=== PATIENT | female | born 1960 | race African-American/Black ===

== ENCOUNTER 2017-06-03 06:42 | Observation (INO) ==
[2017-06-03] MEDS ORDERED: ASPIRIN 325 MG TABLET PO STA (07:03)
[2017-06-03] MEDS ORDERED: ONDANSETRON 4 MG/2 ML VIAL IV PRN ×2 (07:03→14:58)
[2017-06-03] MEDS ORDERED: ENOXAPARIN 100 MG/ML SYRINGE SUBCUT STA (07:03)
[2017-06-03] MEDS ORDERED: NITROGLYCERIN 2% OINT 1 INCH/GM PACK TOP STA (07:03)
[2017-06-03] MEDS ORDERED: MORPHINE 2 MG/1 ML SYRINGE IV PRN (07:03)
[2017-06-03 07:22] LABS: Apearance,Urine Slightly Hazy (Clear); Bacteria,Urine Occasional /HPF (Few); Bilirubin,Urine Negative (Negative); Blood, Urine Small mg/dL (Negative); Glucose,Urine (UA) Negative (Negative); Hyaline Casts,Urine 10 /LPF (0-3); Ketones,Urine Negative (Negative); Mucus,Urine Few /LPF (Occasional); Nitrite,Urine Negative (Negative); Protein,Urine Negative; RBC,Urine 1 /HPF (0-4); Squamous Epithelial Cell,Urine Occasional /HPF (0-10); Urine Color Amber (Yellow); Urine Specific Gravity 1.029 (1.001-1.035); WBC,Urine 2 /HPF (0-6)
[2017-06-03] MEDS ORDERED: NITROGLYCERIN 2% OINT 1 INCH/GM PACK TOP ONE (07:32)
[2017-06-03] MEDS ORDERED: ENOXAPARIN 100 MG/ML SYRINGE SUBCUT ONE (07:32)
[2017-06-03 07:52] LABS: Basophils # 0.1 10*3/uL (0.0-0.2); Basophils % 0.4 % (0.0-0.8); Eosinophils # 0.1 10*3/uL (0.0-0.87); Eosinophils % 0.6 % (0.00-10.9); Hematocrit 36.8 VOL% (35.7-47.0); Hemoglobin 11.4 GM/DL (12.0-16.0); Immature Granulocytes % 0.5 %; Immature Granulocytes Absolute 0.06 #; Lymphocytes # 0.8 10*3/uL (1.4-4.0); Lymphocytes % 7.3 % (21.3-54.2); Mean Corpuscular Hemoglobin 27 PG (27-34); Mean Corpuscular Volume 85.4 FL (87-102); Mean Platelet Volume 11.3 FL (9.6-12.0); Monocytes # 0.4 10*3/uL (0.11-0.8); Monocytes % 3.8 % (1.7-12.7); Neutrophils # 9.9 10*3/uL (1.4-7.4); Neutrophils % 87.4 % (38.7-73.9); Platelet Count 191 T/CUMM (130-400); Red Blood Count 4.31 MC/CUMM (3.8-5.5); Red Cell Distribution Width 15.5 % (9.3-17.3); White Blood Count 11.4 T/CUMM (4-12)
[2017-06-03 07:56] LABS: Barbiturates Screen,Urine Negative (Negative); Benzodiazepines Screen,Urine Negative (Negative); Cannabinoid Screen,Urine Negative (Negative); Opiate Screen,Urine Positive (Negative); Phencyclidine Screen,Urine Negative (Negative)
[2017-06-03 08:09] LABS: Giant Platelets Few; Hypochromasia 1+; Ovalocytes Slight; Platelet Estimate Adequate
[2017-06-03 08:15] LABS: PT Patient Result 10.2 SECS; Partial Thromboplastin Time 31.1 SECS (0-40)
[2017-06-03 08:32] LABS: Albumin 3.8 G/DL (3.4-5.0); Bilirubin,Total 0.9 MG/DL (0.2-1.0); Calcium 8.7 MG/DL (8.5-10.1); Osmolality,Calculated 278.7 MOS/KG (273-304); Potassium 3.7 MMOL/L (3.5-5.1)
[2017-06-03] MEDS ORDERED: ACETAMINOPHEN 325 MG TABLET PO PRN (14:58)
[2017-06-03] MEDS ORDERED: ALUM/MAG/SIMETH/LIDO VISC 1:1 30 ML BOTTLE PO PRN (14:58)
[2017-06-03] MEDS ORDERED: tiZANidine 4 MG TABLET PO PRN (14:58)
[2017-06-03] MEDS: CITALOPRAM 40 MG TABLET PO SCH (20:55)
[2017-06-03] MEDS: BACLOFEN 10 MG TABLET PO SCH (21:01)
[2017-06-03] MEDS: traMADol 50 MG TABLET PO PRN (21:01)
[2017-06-03] MEDS: DICLOFENAC SODIUM 75 MG TABLET PO SCH (21:01)
[2017-06-04] MEDS: LEVOTHYROXINE 125 MCG TABLET PO SCH (06:25)
[2017-06-04] MEDS: FAMOTIDINE 20 MG TABLET PO SCH (09:14)
[2017-06-04] MEDS: BACLOFEN 10 MG TABLET PO SCH ×2 (09:14→20:47)
[2017-06-04] MEDS: MELOXICAM 7.5 MG TABLET PO SCH (09:14)
[2017-06-04] MEDS: DICLOFENAC SODIUM 75 MG TABLET PO SCH ×2 (09:14→20:47)
[2017-06-04] MEDS: SODIUM CHLORIDE 0.45% 1,000 ML IV SCH (15:05)
[2017-06-04] MEDS: CITALOPRAM 40 MG TABLET PO SCH (20:47)
[2017-06-05] MEDS: SODIUM CHLORIDE 0.45% 1,000 ML IV SCH ×2 (01:05→10:51)
[2017-06-05 05:45] LABS: Basophils # 0.1 10*3/uL (0.0-0.2); Basophils % 0.7 % (0.0-0.8); Eosinophils # 0.1 10*3/uL (0.0-0.87); Eosinophils % 1.9 % (0.00-10.9); Hematocrit 37.1 VOL% (35.7-47.0); Hemoglobin 11.5 GM/DL (12.0-16.0); Immature Granulocytes % 0.4 %; Immature Granulocytes Absolute 0.03 #; Lymphocytes # 3.2 10*3/uL (1.4-4.0); Lymphocytes % 43.3 % (21.3-54.2); Mean Corpuscular Hemoglobin 26 PG (27-34); Mean Corpuscular Volume 85.3 FL (87-102); Monocytes # 0.5 10*3/uL (0.11-0.8); Monocytes % 6.3 % (1.7-12.7); Neutrophils # 3.5 10*3/uL (1.4-7.4); Neutrophils % 47.4 % (38.7-73.9); Platelet Count 209 T/CUMM (130-400); Red Blood Count 4.35 MC/CUMM (3.8-5.5); Red Cell Distribution Width 15.4 % (9.3-17.3); White Blood Count 7.3 T/CUMM (4-12)
[2017-06-05 06:13] LABS: Calcium 8.4 MG/DL (8.5-10.1); Osmolality,Calculated 287.8 MOS/KG (273-304); Potassium 4.2 MMOL/L (3.5-5.1)
[2017-06-05] MEDS: LEVOTHYROXINE 125 MCG TABLET PO SCH (06:15)
[2017-06-05] MEDS: FAMOTIDINE 20 MG TABLET PO SCH (10:44)
[2017-06-05] MEDS: MELOXICAM 7.5 MG TABLET PO SCH (10:44)
[2017-06-05] MEDS: BACLOFEN 10 MG TABLET PO SCH ×2 (10:44→20:50)
[2017-06-05] MEDS: traMADol 50 MG TABLET PO PRN (10:45)
[2017-06-05] MEDS: DICLOFENAC SODIUM 75 MG TABLET PO SCH ×2 (10:45→20:50)
[2017-06-05] MEDS: CITALOPRAM 40 MG TABLET PO SCH (20:50)
[2017-06-06] MEDS: SODIUM CHLORIDE 0.45% 1,000 ML IV SCH (03:20)
[2017-06-06] MEDS: LEVOTHYROXINE 125 MCG TABLET PO SCH (09:28)
[2017-06-06] MEDS: FAMOTIDINE 20 MG TABLET PO SCH (09:29)
[2017-06-06] MEDS: MELOXICAM 7.5 MG TABLET PO SCH (09:29)
[2017-06-06] MEDS: BACLOFEN 10 MG TABLET PO SCH (09:29)
[2017-06-06] MEDS: DICLOFENAC SODIUM 75 MG TABLET PO SCH (09:29)
[2017-06-06] MEDS ORDERED: LOPERAMIDE 2 MG CAPSULE PO PRN (11:11)
[2017-06-06 11:42] VITALS: BP 112/84
[2017-06-06] MEDS ORDERED: LACTOBACILLUS ACIDOPHILUS/BULGARICUS CAPLET PO SCH (12:00)
[2017-06-06] MEDS ORDERED: ASPIRIN EC 81 MG TABLET PO SCH (12:00)
[2017-06-06 12:31] LABS: Free T4 (Free Thyroxine) 0.96 NG/DL (0.76-1.46); Thyroid Stimulating Hormone 0.691 uIU/ml (0.358-3.74)
[2017-06-06] MEDS ORDERED: PANTOPRAZOLE 40 MG TABLET PO SCH (13:00)
== END 2017-06-06 15:54 | disposition home or self-care (01) ==
LOC: N.ED 06:42 → N.EDINP 06:42 → N.2E 14:24
PROVIDERS: ADMIT Hospitalist; ATTEND Hospitalist

== ENCOUNTER 2022-05-27 01:21 | Observation (INO) ==
[2022-05-27] MEDS ORDERED: ALUM/MAG/SIMETH/LIDO VISC 1:1 30 ML BOTTLE PO STA (02:15)
[2022-05-27] MEDS ORDERED: ONDANSETRON 4 MG/2 ML VIAL IV STA (02:15)
[2022-05-27] MEDS ORDERED: ASPIRIN 325 MG TABLET PO STA (02:15)
[2022-05-27 02:41] LABS: Hematocrit 33.6 VOL% (35.7-47.0); Hemoglobin 10.3 GM/DL (12.0-16.0); Mean Corpuscular HGB Conc 30.7 GM/DL (32-36); Mean Corpuscular Volume 87.7 FL (87-102); Red Blood Count 3.83 MC/CUMM (3.8-5.5); White Blood Count 7.5 T/CUMM (4-12)
[2022-05-27 02:42] LABS: Basophils # 0.1 10*3/uL (0.0-0.2); Basophils % 0.7 % (0.0-0.8); Eosinophils # 0.2 10*3/uL (0.0-0.87); Eosinophils % 2.1 % (0.00-10.9); Immature Granulocytes % 0.3 %; Immature Granulocytes Absolute 0.02 #; Lymphocytes % 39.6 % (21.3-54.2); Mean Platelet Volume 12.6 FL (9.6-12.0); Monocytes # 0.4 10*3/uL (0.11-0.8); Monocytes % 5.2 % (1.7-12.7); Neutrophils % 52.1 % (38.7-73.9); Platelet Count 191 T/CUMM (130-400); Red Cell Distribution Width 16.2 % (9.3-17.3)
[2022-05-27 02:51] LABS: Alanine Aminotransferase 29 U/L (13-56); Albumin 3.8 G/DL (3.4-5.0); Alkaline Phosphatase 131 U/L (45-117); Aspartate Amino Transferase 36 U/L (0-37); Bilirubin,Total < 0.39 MG/DL (0.20-1.00); Blood Urea Nitrogen 15 MG/DL (7-18); Calcium 8.9 MG/DL (8.5-10.1); Carbon Dioxide 32 MMOL/L (21-32); Chloride 102 MMOL/L (98-107); Glucose 134 MG/DL (74-106); Osmolality,Calculated 281.4 MOS/KG (273-304); Sodium 140 MMOL/L (136-145)
[2022-05-27] MEDS ORDERED: SODIUM CHLORIDE 0.9% 1,000 ML IV STA (02:59)
[2022-05-27] MEDS ORDERED: POTASSIUM CHLORIDE 20 MEQ TABLET PO STA (03:13)
[2022-05-27 03:14] LABS: INR 0.9; PT Patient Result 10.2 SECS (10.1-12.1)
[2022-05-27] MEDS ORDERED: LACTATED RINGERS 500 ML IV ONE (03:40)
[2022-05-27] MEDS ORDERED: ACETAMINOPHEN 325 MG TABLET PO PRN (04:00)
[2022-05-27] MEDS ORDERED: ONDANSETRON 4 MG/2 ML VIAL IV PRN (04:00)
[2022-05-27] MEDS ORDERED: POTASSIUM CHLORIDE 20 MEQ TABLET PO PRN (04:09)
[2022-05-27 04:27] LABS: Free T4 (Free Thyroxine) 0.69 NG/DL (0.76-1.46); Thyroid Stimulating Hormone 3.27 uIU/ml (0.358-3.74)
[2022-05-27 07:23] LABS: Albumin 3.3 G/DL (3.4-5.0); Bilirubin,Total 0.5 MG/DL (0.20-1.00); Calcium 8.7 MG/DL (8.5-10.1); Osmolality,Calculated 282.3 MOS/KG (273-304); Potassium 3.8 MMOL/L (3.5-5.1); Total Protein 6.6 G/DL (6.4-8.2)
[2022-05-27 07:23] LABS: Basophils # 0.1 10*3/uL (0.0-0.2); Basophils % 0.9 % (0.0-0.8); Eosinophils # 0.1 10*3/uL (0.0-0.87); Eosinophils % 1.9 % (0.00-10.9); Hematocrit 32.1 VOL% (35.7-47.0); Hemoglobin 10.1 GM/DL (12.0-16.0); Immature Granulocytes % 0.2 %; Immature Granulocytes Absolute 0.01 #; Lymphocytes # 2.3 10*3/uL (1.4-4.0); Lymphocytes % 40.7 % (21.3-54.2); Mean Corpuscular HGB Conc 31.5 GM/DL (32-36); Mean Corpuscular Volume 87.2 FL (87-102); Mean Platelet Volume 12.4 FL (9.6-12.0); Monocytes # 0.4 10*3/uL (0.11-0.8); Monocytes % 6.1 % (1.7-12.7); Neutrophils % 50.2 % (38.7-73.9); Platelet Count 173 T/CUMM (130-400); Red Blood Count 3.68 MC/CUMM (3.8-5.5); Red Cell Distribution Width 16.3 % (9.3-17.3); White Blood Count 5.7 T/CUMM (4-12)
[2022-05-27] MEDS: PANTOPRAZOLE 40 MG TABLET PO SCH (10:37)
[2022-05-27] MEDS: ENOXAPARIN 40 MG/0.4 ML SYRINGE SUBCUT SCH (10:37)
[2022-05-27] MEDS ORDERED: MELATONIN 3 MG TABLET PO PRN (23:48)
[2022-05-28] MEDS: PANTOPRAZOLE 40 MG TABLET PO SCH (08:40)
[2022-05-28] MEDS: ENOXAPARIN 40 MG/0.4 ML SYRINGE SUBCUT SCH (08:41)
[2022-05-28 11:58] VITALS: BP 124/71
== END 2022-05-28 14:10 | disposition home or self-care (01) ==
LOC: N.EDINP 01:21 → N.ED 01:21 → N.TELES 04:26
PROVIDERS: ADMIT Internal Medicine; ATTEND Internal Medicine